=== PATIENT | male | born 1945 | race Caucasian/White ===

== ENCOUNTER 2016-09-16 22:52 | Emergency (ER) | payer MEDICARE, OTHER ==
[~2016-09-16] VITALS: Ht 177.8 cm; Wt 103.4 kg
[2016-09-17] MEDS ORDERED: CELEBREX100 MG PO (01:55)
[2016-09-17] MEDS ORDERED: LANTUS100 UNIT/1 SUBCUT (01:56)
[2016-09-17] MEDS ORDERED: VICTOZA 2-0.6 MG/0.1 SUBCUT (01:58)
[2016-09-17] MEDS ORDERED: GLUCOPHAGE XR500 MG PO (01:58)
[2016-09-17] MEDS ORDERED: TOPROL XL25 MG PO (01:59)
[2016-09-17] MEDS ORDERED: CLARITIN10 MG PO (01:59)
[2016-09-17] MEDS ORDERED: SIMVASTATIN10 MG PO (02:01)
== END 2016-09-17 01:16 | disposition short-term general hospital (02) ==
LOC: ER 22:52
DX: K59.00 Constipation, unspecified (principal); E11.9 Type 2 diabetes mellitus without complications; I10 Essential (primary) hypertension; J45.909 Unspecified asthma, uncomplicated; G56.00 Carpal tunnel syndrome, unspecified upper limb; M19.90 Unspecified osteoarthritis, unspecified site; E78.5 Hyperlipidemia, unspecified; Z88.8 Allergy status to other drugs, medicaments and biological substances; Z79.82 Long term (current) use of aspirin; Z79.4 Long term (current) use of insulin; Z79.899 Other long term (current) drug therapy